=== PATIENT | male | born 1990 | race Caucasian/White ===

== ENCOUNTER 2017-08-13 21:09 | Emergency (ER) | payer SELFPAY ==
[~2017-08-13] VITALS: Ht 170.2 cm; Wt 68.0 kg
[2017-08-13 21:11] VITALS: BP 140/97
--- NOTE | 2017-08-13 21:11 | NUR ---
PT AMBULATED TO CHAIR E
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
--- NOTE | 2017-08-13 21:20 | NUR ---
PATIENT BIB [facility]. PATIENT EXAMINED BY DR. MANCUSO. PATIENT MEDICALLY CLEARED AND RELEASED IN CUSTODY IN STABLE CONDITION. ORIGINAL PRE-BOOK FORM GIVEN TO OFFICER THOM.Patient discharged with v/s stable. Written and verbal after care instructions given and explained. Patient discharged with v/s stable. Written and verbal after care instructions given and explained. Patient verbalized understanding. Ambulatory with steady gait. All questions addressed prior to discharge. Advised to follow up with PMD.
[2017-08-13 21:25] VITALS: BP 140/97
== END 2017-08-13 21:20 ==
LOC: MED 21:09
DX: S20.312A Abrasion of left front wall of thorax, initial encounter (principal); M54.5 Low back pain; Z02.89 Encounter for other administrative examinations; V43.52XA Car driver injured in collision with other type car in traffic accident, initial encounter; Y93.I9 Activity, other involving external motion; Y92.488 Other paved roadways as the place of occurrence of the external cause; Y99.8 Other external cause status
CPT/HCPCS: 99283

== ENCOUNTER 2020-10-26 01:50 | Emergency (ER) | payer SELFPAY ==
[~2020-10-26] VITALS: Ht 170.2 cm; Wt 82.6 kg
--- NOTE | 2020-10-26 01:50 | NUR ---
PT BIB [facility], PREBOOK. TAKEN TO CHAIR C
[2020-10-26 01:55] VITALS: BP 144/82
--- NOTE | 2020-10-26 02:59 | NUR ---
Dr. Hammer examining patient.
--- NOTE | 2020-10-26 03:25 | NUR ---
d/c back to [facility] officer [facility] #[id number] custody.
== END 2020-10-26 03:25 ==
LOC: MED 01:50
DX: Z02.89 Encounter for other administrative examinations (principal); V89.2XXA Person injured in unspecified motor-vehicle accident, traffic, initial encounter; Y93.89 Activity, other specified; Y92.411 Interstate highway as the place of occurrence of the external cause; Y99.8 Other external cause status
CPT/HCPCS: 99283